=== PATIENT | male | born 1980 | race Native Hawaiian/Other Pacific Islander ===

== ENCOUNTER 2018-05-20 16:22 | Emergency (ER) | payer OTHER ==
[~2018-05-20] VITALS: Ht 167.6 cm; Wt 88.5 kg
[2018-05-20 16:33] VITALS: TEMP 99
[2018-05-20 17:05] VITALS: BP 138/88
== END 2018-05-20 17:05 | disposition home or self-care (01) ==
LOC: ED 16:22
DX: J01.80 Other acute sinusitis (principal); J30.89 Other allergic rhinitis; H69.82 Other specified disorders of Eustachian tube, left ear
CPT/HCPCS: 99281

== ENCOUNTER 2018-08-12 21:53 | Emergency (ER) | payer OTHER ==
[~2018-08-12] VITALS: Ht 167.6 cm; Wt 77.6 kg
[2018-08-12 23:18] VITALS: BP 142/88; TEMP 98.3
== END 2018-08-12 23:19 | disposition home or self-care (01) ==
LOC: ED 21:53
DX: J02.9 Acute pharyngitis, unspecified (principal); R13.19 Other dysphagia; R50.9 Fever, unspecified; Z98.890 Other specified postprocedural states
CPT/HCPCS: 96372; 99283; J0696; J1885

== ENCOUNTER 2019-06-24 21:51 | Emergency (ER) | payer OTHER ==
[~2019-06-24] VITALS: Ht 167.6 cm; Wt 88.5 kg
[2019-06-24] MEDS ORDERED: COZAAR25 MG PO (22:01)
[2019-06-24 23:06] VITALS: BP 146/79; TEMP 98.2
== END 2019-06-24 23:07 | disposition home or self-care (01) ==
LOC: ED 21:51
PROC: 2W3DX1Z Immobilization of Left Lower Arm using Splint (ICD-10-PCS; principal; 2019-06-24)
DX: G56.02 Carpal tunnel syndrome, left upper limb (principal)
CPT/HCPCS: 96372; 99283

== ENCOUNTER 2021-10-08 04:45 | Emergency (ER) | payer OTHER ==
[~2021-10-08] VITALS: Ht 167.6 cm; Wt 88.5 kg
[~2021-10-08 04:45] MED LIST: COZAAR25 MG PO
[2021-10-08 05:47] VITALS: BP 128/76
== END 2021-10-08 05:47 | disposition home or self-care (01) ==
LOC: ED 04:45
DX: M25.512 Pain in left shoulder (principal); G89.29 Other chronic pain
CPT/HCPCS: 93005; 96372; 99283; J1885; J2930

== ENCOUNTER 2022-05-04 11:51 | Outpatient (CLI) | payer OTHER | END 2022-05-04 19:33 | disposition home or self-care (01) | LOC: RAD 11:51 | PROVIDERS: ATTEND Nurse Practitioner Family | DX: M06.4 Inflammatory polyarthropathy (principal) ==

== ENCOUNTER 2022-06-01 16:39 | Outpatient (CLI) | payer OTHER | END 2022-06-01 19:18 | disposition home or self-care (01) | LOC: RAD 16:39 | PROVIDERS: ATTEND Nurse Practitioner Family | DX: M06.4 Inflammatory polyarthropathy (principal); M19.012 Primary osteoarthritis, left shoulder; M35.05 Sjogren syndrome with inflammatory arthritis; R53.83 Other fatigue; R76.0 Raised antibody titer ==

== ENCOUNTER 2022-06-07 09:27 | Outpatient (CLI) | payer OTHER | END 2022-06-07 19:58 | disposition home or self-care (01) | LOC: RESP 09:27 | PROVIDERS: ATTEND Nurse Practitioner Family | DX: M06.4 Inflammatory polyarthropathy (principal); M19.012 Primary osteoarthritis, left shoulder; M35.05 Sjogren syndrome with inflammatory arthritis; R53.83 Other fatigue; R76.0 Raised antibody titer ==

== ENCOUNTER 2022-10-19 06:39 | Emergency (ER) | payer OTHER ==
[~2022-10-19] VITALS: Ht 167.6 cm; Wt 81.6 kg
[2022-10-19 07:35] VITALS: BP 135/78; TEMP 98.1
== END 2022-10-19 07:39 | disposition home or self-care (01) ==
LOC: ED 06:39
DX: M24.811 Other specific joint derangements of right shoulder, not elsewhere classified (principal); X50.9XXA Other and unspecified overexertion or strenuous movements or postures, initial encounter; Y92.89 Other specified places as the place of occurrence of the external cause
CPT/HCPCS: 99283

== ENCOUNTER 2023-02-20 20:33 | Emergency (ER) | payer OTHER ==
[~2023-02-20] VITALS: Ht 167.6 cm; Wt 86.2 kg
[2023-02-20 20:36] VITALS: BP 116/78; TEMP 98.8
== END 2023-02-20 21:42 | disposition home or self-care (01) ==
LOC: ED 20:33
DX: M65.311 Trigger thumb, right thumb (principal); M62.838 Other muscle spasm
CPT/HCPCS: 99283

== ENCOUNTER 2023-03-28 08:50 | Outpatient (CLI) | payer OTHER | END 2023-03-28 20:25 | disposition home or self-care (01) | LOC: RAD 08:50 | PROVIDERS: ATTEND Internal Medicine | DX: Z02.71 Encounter for disability determination (principal) ==